=== PATIENT | female | born 1985 | race Caucasian/White ===

== ENCOUNTER 2019-07-23 22:48 | Emergency (ER) | payer OTHER ==
[2019-07-23 23:14] LABS: BILIRUBIN,URINE NEGATIVE (NEGATIVE); CLARITY,URINE CLEAR (CLEAR); GLUCOSE, URINE (UA) NEGATIVE (NEGATIVE); KETONES,URINE (UA) NEGATIVE (NEGATIVE); LEUKOCYTE ESTERASE, URINE NEGATIVE (NEGATIVE); NITRITE,URINE NEGATIVE (NEGATIVE); OCCULT BLOOD,URINE MODERATE (NEGATIVE); PH,URINE 6.5 PH (5.0-7.5); PROTEIN,URINE NEGATIVE (NEGATIVE); UROBILINOGEN,URINE 0.2 (NORMAL) E.U./dL (NORMAL)
[2019-07-23 23:17] LABS: BACTERIA,URINE Few /HPF (None Seen); RBC,URINE 0-5 /HPF (0-5); SQUAMOUS EPITHELIAL CELL,UR MOD Squamous (<= Few)
[2019-07-23 23:22] LABS: BASOPHILS # (AUTO) 0.1 10^3/uL (0.0-0.1); BASOPHILS % (AUTO) 0.6 %; EOSINOPHILS # (AUTO) 0.4 10^3/uL (0.0-0.7); EOSINOPHILS % (AUTO) 3.1 %; HGB - HEMOGLOBIN 11.9 g/dL (12.0-16.0); LYMPHOCYTES % (AUTO) 16.6 %; MEAN CORPUSCULAR HEMOGLOBIN 30.5 pg (27.0-31.0); MEAN CORPUSCULAR VOLUME 89.7 fL (81.0-99.0); MEAN PLATELET VOLUME 9.9 fL (7.9-10.8); MONOCYTES % (AUTO) 8.1 %; NEUTROPHILS # (AUTO) 8.4 10^3/uL (1.5-6.6); NEUTROPHILS % (AUTO) 70.5 %; PLT - PLATELET COUNT 201 10^3/uL (130-450); RED CELL DISTRIBUTION WIDTH 12.9 % (12.0-15.0); WHITE BLOOD COUNT 11.9 x10^3/uL (4.8-10.8)
[2019-07-23 23:36] LABS: ALBUMIN 3.8 g/dL (3.2-5.5); ALBUMIN/GLOBULIN RATIO 1.1 (1.0-2.2); BILIRUBIN,TOTAL 0.6 mg/dL (0.2-1.0); CALCIUM 9.1 mg/dL (8.5-10.3); CREATININE 0.6 mg/dL (0.4-1.0); TOTAL PROTEIN 7.2 g/dL (6.7-8.2)
--- NOTE | 2019-07-24 00:01 | ED Physician Documentation ---
PD HPI FEMALE - Stated complaint Stated Complaint: BLEEDING - Chief complaint Chief Complaint: Abd Pain - History obtained from History obtained from: Patient - History of Present Illness Timing - onset: Enter time (22:00), Today Timing - details: Abrupt onset Pain level max: 0 Pain level max: 0 Contributing factors: OB-PSYCHOLOGY ASSOCIATE History: G (2), P (1) Similar symptoms before: Has not had sx before Recently seen: Not recently seen - Additional information Additional information: 14 weeks , c/o bright pinkish red blood when she urinated tonight at a pproximately 10 PM, with subsequent scant spotting Review of Systems Constitutional: reports: Reviewed and negative Cardiac: reports: Reviewed and negative Respiratory: reports: Reviewed and negative GI: reports: Reviewed and negative : reports: Vaginal bleeding, Now EGA (14 weeks). denies: Dysuria, Frequency PD PAST MEDICAL HISTORY - Past Medical History Past Medical History: Yes Psych: Other Other Past Medical History: Anorexia - Past Surgical History Past Surgical History: No - Present Medications Home Medications: Ambulatory Orders Medication Instructions Recorded Confirmed No Known Home Medications 07/23/19 07/25/19 - Allergies Allergies/Adverse Reactions: Allergies Allergy/AdvReac Type Severity Reaction Status Date / Time No Known Drug Allergies Allergy Verified 07/25/19 12:59 - Social History Does the pt smoke?: No Smoking Status: Never smoker Does the pt drink ETOH?: No Does the pt have substance abuse?: No - Immunizations Immunizations are current?: Yes - POLST Patient has POLST: No PD ED PE NORMAL - Vitals Vital signs reviewed: Yes - General General: Alert and oriented X 3, No acute distress, Well developed/nourished - Cardiac Cardiac: RRR, No murmur - Abdomen Abdomen: Soft, Non tender - Back Back: No CVA TTP Results - Vitals Vitals: Oxygen O2 Source Room air - Labs Labs: Laboratory Tests 07/23/19 07/23/19 07/23/19 22:55 23:07 23:07 WBC RBC Hgb Hct MCV MCH MCHC RDW Plt Count MPV Neut # (Auto) Lymph # (Auto) Gooding # (Auto) Eos # (Auto) Baso # (Auto) Absolute Nucleated RBC Nucleated RBC % Sodium 136 Potassium 3.4 L Chloride 99 L Carbon Dioxide 23 Anion Gap 14.0 H BUN 11 Creatinine 0.6 Estimated GFR (MDRD) 115 Glucose 93 Calcium 9.1 Total Bilirubin 0.6 AST 26 ALT 22 Alkaline Phosphatase 59 Total Protein 7.2 Albumin 3.8 Globulin 3.4 Albumin/Globulin Ratio 1.1 Lipase 29 HCG, Quant Urine Color YELLOW Urine Clarity CLEAR Urine pH 6.5 Ur Specific [place] <=1.005 Urine Protein NEGATIVE Urine Glucose (UA) NEGATIVE Urine Ketones NEGATIVE Urine Occult Blood MODERATE H Urine Nitrite NEGATIVE Urine Bilirubin NEGATIVE Urine Urobilinogen 0.2 (NORMAL) Ur Leukocyte Esterase NEGATIVE Urine RBC 0-5 Urine WBC 0-3 Ur Squamous Epith Cells MOD Squamous H Urine Bacteria Few Ur Microscopic Review INDICATED Urine Culture Comments NOT INDICATED Blood Type O POSITIVE 07/23/19 07/23/19 23:07 23:07 WBC 11.9 H RBC 3.90 L Hgb 11.9 L Hct 35.0 L MCV 89.7 MCH 30.5 MCHC 34.0 RDW 12.9 Plt Count 201 MPV 9.9 Neut # (Auto) 8.4 H Lymph # (Auto) 2.0 Gooding # (Auto) 1.0 Eos # (Auto) 0.4 Baso # (Auto) 0.1 Absolute Nucleated RBC 0.00 Nucleated RBC % 0.0 Sodium Potassium Chloride Carbon Dioxide Anion Gap BUN Creatinine Estimated GFR (MDRD) Glucose Calcium Total Bilirubin AST ALT Alkaline Phosphatase Total Protein Albumin Globulin Albumin/Globulin Ratio Lipase HCG, Quant 36262.00 Urine Color Urine Clarity Urine pH Ur Specific [place] Urine Protein Urine Glucose (UA) Urine Ketones Urine Occult Blood Urine Nitrite Urine Bilirubin Urine Urobilinogen Ur Leukocyte Esterase Urine RBC Urine WBC Ur Squamous Epith Cells Urine Bacteria Ur Microscopic Review Urine Culture Comments Blood Type - Rads (name of study) OB US Radiology: Prelim report reviewed, See rad report PD MEDICAL DECISION MAKING - ED course Complexity details: reviewed results, re-evaluated patient, considered differential, d/w patient Departure - Departure Disposition: 01 Home, Self Care Clinical Impression: Vaginal bleeding during Condition: Good Instructions: ED Miscarriage Poss Follow-Up: ROBERT Quiros [Provider Group] Discharge Date/Time: 07/24/19 03:42
--- NOTE | 2019-07-24 02:39 | Ultrasound Report ---
Reason: 14 weeks , vaginal bleeding Procedure Date: 07/24/2019 Accession Number: [id number] / [id number] Procedure: US - OB Limited CPT Code: FULL RESULT: EXAM: LIMITED OBSTETRICAL ULTRASOUND EARLY SECOND TRIMESTER EXAM DATE: 07/24/2019 02:24 AM. CLINICAL HISTORY: 14 weeks , vaginal bleeding. COMPARISON: None. TECHNIQUE: Real-time sonographic evaluation of the fetus performed by the color paste mixing supervisor. Multiple residential sales representative static images were saved for review. DATING: Established EGA 14 weeks 5 days with CESARIO 01/17/2020 based on provided dating. GENERAL EVALUATION Barrett . Cardiac activity: 157 bpm. movement: Visualized. Presentation: Variable Placenta: Anterior position. No evidence for previa. Amniotic fluid: Subjectively normal. MVP 3.6 cm. ANATOMY Not assessed, secondary to the emergent nature of the examination. MATERNAL STRUCTURES Uterus: Unremarkable. Cervix: Long and closed. Right ovary/adnexa: Unremarkable. Left ovary/adnexa: Unremarkable. Free fluid: None. IMPRESSION: 1. Barrett live intrauterine with gestational age 14 weeks 5 days based on provided dating. 2. No evidence of perigestational hemorrhage. Note: Detailed anatomic survey at 18-22 weeks is recommended for all fetuses evaluated prior to 18 weeks, as some structural abnormalities may be inapparent at earlier gestational ages. RADIA
[2019-07-24 03:34] VITALS: BP 117/62
== END 2019-07-24 03:42 | disposition home or self-care (01) ==
LOC: ED 22:48
DX: O46.92 Antepartum hemorrhage, unspecified, second trimester (principal); Z3A.14 14 weeks gestation of pregnancy
CPT/HCPCS: 36415; 76815; 80053; 81001; 81003; 83690; 84702; 85025; 86900; 86901; 87086; 99283; 99284

== ENCOUNTER 2019-07-25 12:45 | Emergency (ER) | payer OTHER ==
[2019-07-25 12:59] VITALS: BP 123/62
--- NOTE | 2019-07-25 14:06 | ED Physician Documentation ---
History of Present Illness - Stated complaint Stated Complaint: FEM /14 WEEKS - Chief complaint Chief Complaint: Abd Pain - History obtained from History obtained from: Patient - History of Present Illness Timing: Today Pain level max: 0 Pain level now: 0 Improved by: nothing Worsened by: nothing - Additonal information Additional information: 34-year-old female presents the emergency department with vaginal bleeding and spotting. Seen here approximately 36 hours ago for same. Has an IUP at approximately 14 weeks EGA. Review of Systems Ten Systems: 10 systems reviewed and negative Constitutional: denies: Fever, Chills Nose: denies: Rhinorrhea / runny nose, Congestion GI: denies: Vomiting, Diarrhea : denies: Dysuria, Frequency, Hesitancy, Discharge Skin: denies: Rash Musculoskeletal: denies: Neck pain, Back pain Neurologic: denies: Focal weakness, Numbness PD PAST MEDICAL HISTORY - Past Medical History Past Medical History: No Psych: Other - Past Surgical History Past Surgical History: No - Present Medications Home Medications: Ambulatory Orders Medication Instructions Recorded Confirmed No Known Home Medications 07/23/19 07/25/19 - Allergies Allergies/Adverse Reactions: Allergies Allergy/AdvReac Type Severity Reaction Status Date / Time No Known Drug Allergies Allergy Verified 07/25/19 12:59 - Social History Does the pt smoke?: No Smoking Status: Never smoker Does the pt drink ETOH?: No Does the pt have substance abuse?: No - Immunizations Immunizations are current?: Yes - POLST Patient has POLST: No PD ED PE NORMAL - Vitals Vital signs reviewed: Yes - General General: Alert and oriented X 3, No acute distress, Well developed/nourished - HEENT HEENT: PERRL, Moist mucous membranes - Neck Neck: Supple, no meningeal sign - Cardiac Cardiac: RRR, Strong equal pulses - Respiratory Respiratory: No respiratory distress, Clear bilaterally - Abdomen Abdomen: Soft, Non tender, Non distended - Female Female : Pt declined - Back Back: No spinal TTP - Derm Derm: Warm and dry - Neuro Neuro: Alert and oriented X 3 - Psych Psych: Normal mood, Normal affect Results - Vitals Vitals: Vital Signs - 24 hr 07/25/19 12:55 Temperature 36.8 C Heart Rate 93 Respiratory 18 Rate Blood Pressure 123/62 O2 Saturation 98 Oxygen O2 Source Room air - Labs Labs: Laboratory Tests 07/25/19 14:05 C. glabrata (PCR) NEGATIVE C. krusei (PCR) NEGATIVE Karolina species DNA POSITIVE A T. vaginalis (PCR) NEGATIVE Bact Vaginosis (PCR) NEGATIVE PD MEDICAL DECISION MAKING - ED course Complexity details: reviewed old records, reviewed results, considered differential, d/w patient ED course: Patient with an intrauterine . heart rate of approximately 146 bpm. Good movement. Had lab work approximately 24 hours ago, will not repeat today. We did do a vaginal swab, this came back with a yeast, but the patient is asymptomatic, therefore per up-to-date and CDC guidelines, will not treat at this time. Patient counseled regarding signs and symptoms for which I believe and urgent re-evaluation would be necessary. Patient with good understanding of and agreement to plan and is comfortable going home at this time This document was made in part using voice recognition software. While efforts are made to proofread this document, sound alike and grammatical errors may occur. Departure - Departure Disposition: 01 Home, Self Care Clinical Impression: Vaginal bleeding affecting early Condition: Good Instructions: ED Miscarriage Poss Follow-Up: CLEMENTINE SAUCEDA MD [Primary Care Provider] - Within 1 week Comments: Return if you worsen. Follow-up with your doctor for further care. Your swab should be done by 4:00 today and if it is positive, we will call you for a prescription. If you do not hear from us by 5:00, please call back to the emergency department. Discharge Date/Time: 07/25/19 14:09
[2019-07-25 17:09] LABS: CANDIDA GROUP DNA POSITIVE (NEGATIVE); CANDIDA KRUSEI DNA NEGATIVE (NEGATIVE); TRICHOMONAS VAGINALIS DNA NEGATIVE (NEGATIVE)
== END 2019-07-25 14:09 | disposition home or self-care (01) ==
LOC: ED 12:45
DX: O20.9 Hemorrhage in early pregnancy, unspecified (principal); Z3A.14 14 weeks gestation of pregnancy
CPT/HCPCS: 80053; 83690; 84702; 85025; 87661; 87801; 99283

== ENCOUNTER 2019-12-20 14:37 | Outpatient (CLI) | payer OTHER ==
--- NOTE | 2019-12-21 16:10 | Ultrasound Report ---
Reason: GESTATIONAL DIABETES Procedure Date: 12/20/2019 Accession Number: [id number] / [id number] Procedure: US - OB F/U or Repeat CPT Code: Final Report FULL RESULT: EXAM: FOLLOW-UP OBSTETRICAL ULTRASOUND EXAM DATE: 12/20/2019 03:18 PM. CLINICAL HISTORY: Gestational diabetes. COMPARISON: OB LIMITED 07/24/2019 1:41 AM. TECHNIQUE: Real-time sonographic evaluation of the fetus performed by the online marketing specialist. Multiple representative personal service static images were saved for review. DATING: Established EGA 36 weeks 0 days with CESARIO 01/17/2020 based on working due date. EGA 35 weeks 4 days with CESARIO 01/20/2020 based on the current ultrasound. GENERAL EVALUATION Barrett . Cardiac activity: 147 bpm. movement: Visualized. Presentation: Cephalic. Placenta: Anterior position. Amniotic fluid: Normal. TAMIKO 7.4 cm. MVP 3.7 cm. BIOMETRY Bi-Parietal Diameter (BPD): 8.7 cm, 35 weeks 1 day Head Circumference (HC): 31.9 cm, 35 weeks 6 days Abdominal Circumference (AC): 32.7 cm, 36 weeks 4 days Femur Length (FL): 6.7 cm, 34 weeks 4 days Estimated Weight: 2781 g, 46th percentile for 36 weeks 0 days. IMPRESSION: 1. Barrett live intrauterine with gestational age 36 weeks 0 days based on working due date. 2. Estimated weight is within expected limits for assigned dating. RORY
== END 2019-12-20 14:38 | disposition home or self-care (01) ==
LOC: DI 14:37
PROVIDERS: ATTEND Nurse Practitioner Obstetrics & Gynecology
DX: O24.419 Gestational diabetes mellitus in pregnancy, unspecified control (principal); Z3A.36 36 weeks gestation of pregnancy; Z11.3 Encounter for screening for infections with a predominantly sexual mode of transmission
CPT/HCPCS: 36415; 76816; 81599; 86695; 86696

== ENCOUNTER 2019-12-20 15:23 | Outpatient (CLI) | payer OTHER ==
[2019-12-23 09:14] LABS: HSV 1 IGG TYPE SPECIFIC AB <0.90 index; HSV 2 IGG TYPE SPECIFIC AB <0.90 index
== END 2019-12-20 15:24 | disposition home or self-care (01) ==
LOC: LAB 15:23
PROVIDERS: ATTEND Nurse Practitioner Obstetrics & Gynecology
DX: Z11.3 Encounter for screening for infections with a predominantly sexual mode of transmission (principal)
CPT/HCPCS: 36415; 81599; 86695; 86696

== ENCOUNTER 2019-12-25 08:00 | Outpatient (CLI) | payer OTHER ==
[2019-12-25 21:11] LABS: TRICHOMONAS VAGINALIS DNA NEGATIVE (NEGATIVE)
== END 2019-12-25 23:59 | disposition home or self-care (01) ==
LOC: LAB.R 08:00
PROVIDERS: ATTEND Nurse Practitioner Obstetrics & Gynecology
DX: Z36.85 Encounter for antenatal screening for Streptococcus B (principal)
CPT/HCPCS: 87491; 87591; 87661; 87797

== ENCOUNTER 2020-01-11 16:20 | Inpatient (IN) | payer OTHER ==
[2020-01-11] MEDS ORDERED: ONDANSETRON ODT 4 MG TABLET TL PRN (17:57)
[2020-01-11] MEDS ORDERED: SODIUM CHLORIDE FLUSH 0.9% 10 ML SYRINGE IVP PRN (17:57)
[2020-01-11] MEDS ORDERED: ONDANSETRON 4 MG/2 ML VIAL IVP PRN (17:57)
[2020-01-11] MEDS ORDERED: AMPICILLIN 2 GM in SODIUM CHLORIDE 0.9% MINIBAG 100 ML IV ONE (17:57)
[2020-01-11] MEDS ORDERED: ACETAMINOPHEN 325 MG TABLET PO PRN (17:57)
[2020-01-11] MEDS ORDERED: fentaNYL 100 MCG/2 ML VIAL IVP PRN (17:57)
[2020-01-11] MEDS ORDERED: OXYTOCIN/SODIUM CHLORIDE 500 ML IV SCH (18:00)
[2020-01-11] MEDS ORDERED: LACTATED RINGERS 1,000 ML IV SCH (18:00)
--- NOTE | 2020-01-11 18:38 | HISTORY & PHYSICAL EXAMINATION ---
Admit History - : 2 Parity: 1 Premature: 0 Ectopic: 0 : 0 Care: positive: IWROBERT ALMONTE-Shawanda Risk/History: positive: Labor induction Complications This : positive: Gestational diabetes Smoking Status: Former smoker - Mother's Labs Mother's Blood Type: positive: O Mother's RH: positive: Positive GBS: positive: Group B Strep Positive Rubella Status: positive: Immune - Other Maternal History Other Maternal History: Dacia Pride is 34yo who presents at 39.1wks gestation She is currently blayne intermittently. FHT baseline 135, moderate variability, accels, no decels. She received care with [facility] after a 34.5 week transfer from [facility] care which was adequate for her . Her is complicated by GDM(diet controlled) and positive GBS. She is admitted to Observation status today for pre-induction cervical ripening Initial U/S: 06/26/2019 @ 10.5wks gestation c/w LMP dating OB History: G1: 2013 term male infant 8#1oz G2: current Current Medications: Vitamins Allergies: NKDA Medical History: Eating disorder Abnormal Pap- coloposcopy 2014 Surgical History: None significant Family History: None contributing Social History: Former Smoker Labs: O+/Rubella immune Genetic testing: Serum integrated screen negative; CF neg FAS: 09/01/2019 WNL. Anterior placenta, no previa. Size c/w dating. 3VC. TAMIKO WNL. 12/20/2019 growth and TAMIKO WNL. TAMIKO 7.4. EFW 2781g. 46%tile. Glucola elevated 156; 3hr diagnoses gestational diabetes - 85, 217, 190, 78 TDAP 11/06/2019 GBS POSITIVE Physical Exam: WNL As charted in flowsheet Gravid, Nontender uterus Vertex by palpation and by RN digital exam EFW by noel 7# SVE: 2/60/-1/mod/posterior ASSESSMENT: 34yo at 39.1wks gestation presents for pre-induction cervical ripening. Cat I tracing Uterine activity- intermittent and mild GDM- diet controlled GBS- positive prophylaxis ordered PLAN: OBS until: active labor, SROM, AROM, epidural, or pitocin Continuous monitoring IV fentanyl and epidural per pt request Diet and Activity as tolerated at this time Anticipate Meds/Allgy - Home Medications Home Medications: Ambulatory Orders Medication Instructions Recorded Confirmed No Known Home Medications 07/23/19 07/25/19 - Allergies Allergies/Adverse Reactions: Allergies Allergy/AdvReac Type Severity Reaction Status Date / Time No Known Drug Allergies Allergy Verified 07/25/19 12:59 Review of Systems - Constitutional Constitutional: denies: Fatigue, Fever, Chills, Weakness - Eyes Eyes: denies: Pain, Blurred vision, Spots in vision, Vision loss, Dipolpia - Ears, Nose & Throat Ears, Nose & Throat: denies: Hearing loss, Tinnitus, Vertigo, Nasal discharge, Nasal congestion - Cardiovascular Cariovascular: reports: Palpitations. denies: Irregular heart rate, Chest pain, Edema, Lightheadedness, Syncope - Respiratory Respiratory: denies: Cough, Sputum production, Wheezing, SOB at rest, SOB with exertion - Gastrointestinal Gastrointestinal: denies: Abdominal pain, Abdominal distention, Rectal bleeding - Musculoskeletal Musculoskeletal: denies: Muscle pain, Back pain, Muscle aches - Integumentary Integumentary: denies: Rash, Pruritis, Lesions - Neurological Neurological: denies: General weakness, Headache, Dizziness - Psychiatric Psychiatric: denies: Depression, Anxiety - Hematologic/Lymphatic Hematologic/Lymphatic: denies: Anemia, Bruising - All Other Systems All Other Systems: denies: Reviewed and negative Physical - Abdominal Exam Contraction Frequency (min/apart): intermittent Contraction Intensity: positive: Mild Uterine Resting Tone: positive: Soft - Monitoring Strip Review: positive: Category I - Presentation Presentation: positive: Vertex - Vaginal Exam Membranes: positive: Membranes intact Dilation (in cm): 2 Effacement (%): 60 Station: positive: -1 Cervical Position: positive: Posterior - Speculum Exam Speculum Exam Performed: positive: No Plan for Labor - Plan For Labor I expect patient to be DC'd or transferred within 96 hours.: Yes
[2020-01-11 19:16] LABS: BASOPHILS % (AUTO) 0.3 %; EOSINOPHILS # (AUTO) 0.1 10^3/uL (0.0-0.7); EOSINOPHILS % (AUTO) 1.2 %; HGB - HEMOGLOBIN 11.8 g/dL (12.0-16.0); LYMPHOCYTES # (AUTO) 1.3 10^3/uL (1.5-3.5); LYMPHOCYTES % (AUTO) 14.3 %; MEAN CORPUSCULAR HEMOGLOBIN 30.6 pg (27.0-31.0); MEAN CORPUSCULAR HGB CONC 34.4 g/dL (32.0-36.0); MEAN CORPUSCULAR VOLUME 89.1 fL (81.0-99.0); MEAN PLATELET VOLUME 10.2 fL (7.9-10.8); MONOCYTES % (AUTO) 10.2 %; NEUTROPHILS # (AUTO) 6.8 10^3/uL (1.5-6.6); PLT - PLATELET COUNT 215 10^3/uL (130-450); RED BLOOD COUNT 3.85 10^6/uL (4.20-5.40); RED CELL DISTRIBUTION WIDTH 13.8 % (12.0-15.0); WHITE BLOOD COUNT 9.3 x10^3/uL (4.8-10.8)
[2020-01-11] MEDS: miSOPROStoL 100 MCG TABLET BC SCH (20:20)
[2020-01-12] MEDS ORDERED: SODIUM CHLORIDE FLUSH 0.9% 10 ML SYRINGE IVP SCH (01:00)
[2020-01-12] MEDS: miSOPROStoL 100 MCG TABLET BC SCH (02:23)
--- NOTE | 2020-01-12 07:08 | PROVIDER PROGRESS NOTE ---
Labor Progress Note - Uterine Monitoring Contraction Frequency (min/apart): 1.5-2.5 Contraction Intensity: positive: Moderate Uterine Resting Tone: positive: Soft - Monitoring Monitor Mode: positive: External ultrasound Heart Rate Baseline: 125 Heart Rate Variability: positive: Moderate (6-25 bmp) Accelerations: positive: Present, 15x15 Decelerations: positive: None - Vaginal Exam Dilation (in cm): 3 Effacement (%): 80 Station: 0 Cervical Position: Anterior - Labor Progress Note Labor Progress Note/Additional Text: S: Dacia was able to sleep well last night, but was kept awake around 0600 by the strength of her contractions. Coping with with position changes and breathing exercises. Denies LOF or VB. O: FHTs as charted in flowsheet Uterine ctx as charted in flowsheet VSS Fasting AM blood sugar 95 last SVE: /0/moderate/anterior Miso ripening x2 A: Early active labor, Hollis Score 10 FHT Cat I Uterine contractions adequate at this time P: Expectant management IV hydration GBS prophylaxis with antibiotics ordered Continuous monitoring Eat/Drink/Ambulate as desired Expect
[2020-01-12] MEDS ORDERED: TERBUTALINE 1 MG/ML VIAL SUBQ PRN (07:39)
[2020-01-12] MEDS ORDERED: WITCH HAZEL/GLYCERIN 1 PAD TOP PRN (10:07)
[2020-01-12] MEDS ORDERED: OXYTOCIN 10 UNIT/ML VIAL IM ONE ×2 (10:07→12:30)
--- NOTE | 2020-01-12 10:27 | DELIVERY NOTE ---
Delivery Note - Labor Labor: positive: Induced by ARM - Infant Delivery Method Delivery Method: positive: Spontaneous vaginal delivery - Cervical Ripening Method Cervical Ripening Method: positive: Misoprostil - Presentation Presentation: positive: Vertex, NUNU - right occiput anterior - Nuchal Cord Nuchal Cord: positive: None - Amniotic Fluid Description Amniotic Fluid Description: positive: Light meconium - Laceration Laceration: positive: None - Delivery Outcome Delivery Outcome: positive: Livebirth - Murphy: positive: Placed in direct skin contact with mother sex: positive: Female - Cord Cord: positive: 3 vessels - Placenta Placenta: positive: Intact - Estimated Blood Loss Estimated Blood Loss (in cc): 150 - Post Delivery Events Post Delivery Events: positive: No post delivery events - Delivery Comments (Free Text/Narrative) Delivery Comments (Free Text/Narrative): This 34 year old, , @39.1wks gestation by 10.5week Ultrasound, confirmed by LMP, presented @ 1630 for pre-induction cervical ripening. Cervix was 2/60/- 2/posterior and vertex. FHR pattern demonstrated 125 baseline in a Category I pattern. Normal labor course. SROM occurred @ 0835 and noted to be moderate volume with light meconium. Pt was 3/80/0/mod/anterior around 0800 and GBS prophylaxis was started. Pt quicklt progressed to complete at 0921. : Normal of a female infant on 01/12/2020 @ 0935. Nuchal cord not present. The was placed on maternal abdomen, stimulated, dried and placed skin to skin. Apgars 9 at one minute and 9 at five minutes. The umbilical cord was allowed to stop pulsating at which time it was doubly clamed by CNM and cut by Dacia. Pitocin not administered for hemostasis due to failure of IV access. Physiologic management was done. Fundal massage and gentle cord traction applied for active third stage management. Cord blood was obtained. Placenta delivered spontaneously and intact at 0942. Three vessel cord. EBL 150mL. Fourth Stage: Uterine fundus firm and without excessive bleeding. The perineum, vagina, and cervix were inspected and found to be intact. Tissues well approximated. initiated. Family bonding well. Both mother and baby are in stable condition.
[2020-01-12] MEDS ORDERED: AMPICILLIN 1 GM in SODIUM CHLORIDE 0.9% MINIBAG 100 ML IV SCH (12:00)
[2020-01-12] MEDS ORDERED: METHYLERGONOVINE 0.2 MG/ML VIAL IM ONE (13:00)
[2020-01-13] MEDS: IBUPROFEN 600 MG TABLET PO SCH ×3 (08:25→20:23)
[2020-01-13] MEDS: DOCUSATE SODIUM 100 MG CAPSULE PO PRN ×2 (08:25→21:57)
--- NOTE | 2020-01-13 20:59 | PROVIDER PROGRESS NOTE ---
Subjective - Prog Note Date Prog Note Date: 01/13/20 Prog Note Time: 15:00 - Subjective Subjective: S: Pt reports feeling well. Pain well controlled with oral medications. Cramping with only. Bleeding has continued to decrease since . Br eastfeeding is going well, reports inconsistent latch. Positively describes experience and bonding with baby. Desires to go home tomorrow. Denies dizziness, headache, nausea, or pain in breasts. O: BP 124/73 Light lochia rubra Fundus firm without massage Excellent attachment behaviors noted Afebrile A: 34yo , day #1 Status post term well Perineum intact and healing well P: Continue routine PP care and meds Evaluate for discharge home tomorrow Objective - Vital Signs/Intake & Output Vital Signs: Vital Signs x48h Temp Pulse Resp BP Pulse Ox 01/13/20 19:55 36.6 C 80 18 124/73 99 01/13/20 17:03 36.6 C 72 18 105/54 L 98 Intake & Output: Intake & Output 01/10/20 01/11/20 01/12/20 01/13/20 23:59 23:59 23:59 23:59 Intake Total 100 1350 Output Total 1750 Balance 100 -400 - Lab Results Fish Bones: 01/11/20 18:40
[2020-01-14] MEDS: IBUPROFEN 600 MG TABLET PO SCH ×2 (04:35→10:46)
[2020-01-14 07:40] VITALS: BP 125/78
--- NOTE | 2020-01-14 09:42 | Discharge Plan ---
Discharge Plan Problem Reviewed?: Yes Disposition: Home, Self Care Diet: Regular Activity Restrictions: Activity as Tolerated Shower Restrictions: No Driving Restrictions: No Weight Bearing: Full Weight No Smoking: If you smoke, Please STOP! Call for help.
--- NOTE | 2020-01-14 09:45 | DISCHARGE SUMMARY ---
Discharge Summary Admit Date: 01/12/20 Discharge Date: 01/14/20 Code Status: Attempt Resuscitation Condition at Discharge: Good Discharge Disposition: 01 Home, Self Care - DIAGNOSES Admission Diagnoses: Date of Admission 01/12/2020 Date of Discharge 01/14/2020 Diagnosis on Admission: 1. A 34yo at 49.2 week intrauterine 2. Early Active Labor 3. Gestational Diabetes, diet controlled 4. GBS positive Diagnosis on Discharge 1. A 34yo s/p spontaneous vaginal delivery on 01/14/2020 2. Normal recovery Brief History: She is a patient at [facility] who presented on 01/11/2020 for Observation status for pre-induction cervical ripening due to gestational di abetes. She was admitted to the unit on 01/12/2020 when she began active labor and SROMed at 0835. GBS prophylaxis was started. The patient was found to contract every 2 to 3 minutes and her cervix was 3cm dilated, 80%effaced, and -1 station. She spontaneously delivered a viable female infant named Radha at 0935. Apgars were 9 and 9 at 1 and 5 minutes respectively. EBL 150 mL. The patient's perineum was found to be intact. She has been doing well in her course. She is ambulating and tolerating a regular diet. She is urinating without difficulty and her lochia is normal. Her pain is well controlled with oral medications. She will be discharged home today on pastpartum day #2 without prescriptions, as she declined them. She intends to follow up with myself at [facility] in 3 weeks for routine visit, but to call at one week for a telephone assessment of . She has been given precautions to call if she has any worsening fevers, chills, abdominal pain, increased bleeding or foul smelling vaginal lochia. - ALLERGIES Allergies/Adverse Reactions: Allergies Allergy/AdvReac Type Severity Reaction Status Date / Time No Known Drug Allergies Allergy Verified 07/25/19 12:59 - MEDICATIONS Home Medications: Ambulatory Orders Medication Instructions Recorded Confirmed No Known Home Medications 07/23/19 07/25/19 - LABS Result Diagrams: 01/11/20 18:40
[2020-01-14] MEDS: DOCUSATE SODIUM 100 MG CAPSULE PO PRN (10:51)
--- NOTE | 2020-01-14 11:17 | PROVIDER PROGRESS NOTE ---
Subjective - Prog Note Date Prog Note Date: 01/14/20 Prog Note Time: 11:14 - Subjective Pt reports feeling: Improved (breast feeding) Objective - Vital Signs/Intake & Output Reviewed Vital Signs: Yes Vital Signs: Vital Signs x48h Temp Pulse Resp BP Pulse Ox 01/14/20 07:39 36.6 C 72 18 125/78 100 Intake & Output: Intake & Output 01/11/20 01/12/20 01/13/20 01/14/20 23:59 23:59 23:59 23:59 Intake Total 100 1350 Output Total 1750 Balance 100 -400 - Objective General Appearance: positive: No acute distress, Alert Rectal: positive: Non-tender, Mass (U-3) Extremities: positive: Calf tenderness. negative: Mercedes's sign/cords Neurologic/Psychiatric: positive: Oriented x3 - Lab Results Fish Bones: 01/11/20 18:40 Assessment/Plan - Problem List (1) (spontaneous vaginal delivery) Impression: Send home Discharge medicationa Motrin colace PNV tylenol RTC 6 weeks Discussed contraception
--- NOTE | 2020-01-14 12:38 | Labor Flowsheet ---
Labor Flowsheet Datetime Report Generated by CPN: 01/14/2020 12:38 Datetime: 01/14/2020 07:32 VITAL SIGNS NBP Sys/Kinsey/Mean (mmHg): 125 : 78 : 90 Pulse: 72 Datetime: 01/13/2020 17:04 SpO2 (%): 99 Datetime: 01/12/2020 13:18 Membranes Ruptured Date/Time: 01/12/2020 08:25 Amniotic Fluid Odor: Normal Datetime: 01/12/2020 10:02 Pain Presence: None/Denies Datetime: 01/12/2020 09:59 LaborFlag: Labor Datetime: 01/12/2020 09:44 Stage of : Labor Datetime: 01/12/2020 09:36 MEDICATIONS Pitocin (milliunits): Started @ 999 Medication Comments: Datetime: 01/12/2020 09:21 VAGINAL EXAM Dilatation (cm): 10.0 Effacement (%): 100 Station: 0 Exam by: Kath Ulloa Vaginal Bleeding: Normal Show Cervix, Consistency: Soft Cervix, Position: Midposition Datetime: 01/12/2020 09:06 Vaginal Exam Comments: light mec noted on exam Datetime: 01/12/2020 09:01 COMMUNICATION Communication: Provider at Bedside Provider Notified (Name): CNM [place] Datetime: 01/12/2020 08:40 Notification Reason: Status Update; Membrane Status; Uterine Activity Communication Comments: Notified provider patient SROM Datetime: 01/12/2020 08:35 Membrane Status: Ruptured Membranes Rupture Method: Spontaneous Amniotic Fluid Color: Light Meconium Amniotic Fluid Amount: Moderate Nitrazine: Positive Datetime: 01/12/2020 08:17 Patient Position/Activity: Birthing Ball Datetime: 01/12/2020 08:09 Respirations: 20 Temperature (C): 36.6 Datetime: 01/12/2020 08:02 Antibiotics: Start Antibiotics; Ampicillin IV 2 Gm Datetime: 01/12/2020 08:00 UTERINE ACTIVITY Monitor Mode: External Frequency (min): 1-1.5 Quality: Moderate Duration (sec): 50-70 Pattern: Tachysystole: > 5 Contractions in 10 Minutes Resting Tone (Palpate): Relaxed ASSESSMENT A Monitor Mode: Telemetry FHR Baseline Rate : 125 Variability: Moderate 6-25 bpm Accelerations: 15X15 Decelerations: None Category: Category I Datetime: 01/12/2020 07:48 PATIENT CARE IV/Blood Work: IV Bolus Started Patient Care Comments: 500ml bolus started Datetime: 01/12/2020 07:35 Provider Reviewed Strip: Yes Datetime: 01/12/2020 07:30 FHR Baseline Changes: No Baseline Change Datetime: 01/12/2020 06:52 PAIN Pain Scale: 6 Pain Type: Cramping Pain Location: Abdomen; Back Pain Relief Measures: Comfort Measures Pain Coping: Breathing Through Contractions Datetime: 01/12/2020 05:30 Temperature Route: Oral Datetime: 01/12/2020 02:23 Cervical Ripening Agents: Cytotec @ Cervical Ripening Agents Other: cytotec 50mcg buccal Datetime: 01/12/2020 00:36 Vital Sign Comments: pt shivering, thermostat temp increased and wwarm blankets placed on pt Datetime: 01/11/2020 21:30 MATERNAL ASSESSMENT Level of Consciousness: Alert Headache: Denies Breath Sounds, Left: Clear and Equal Breath Sounds, Right: Clear and Equal Nausea/Vomiting: Denies RUQ Epigastric Pain: Denies
== END 2020-01-14 12:00 | disposition home or self-care (01) | DRG 807 ==
LOC: WFO 16:20 → FBP 16:21 → WFO 18:38 → FBP 18:39 → OBSVTOIN 01-12 12:41
PROVIDERS: ADMIT Obstetrics & Gynecology; ATTEND Obstetrics & Gynecology
PROC: 10E0XZZ Delivery of Products of Conception, External Approach (ICD-10-PCS; principal; 2020-01-12)
PROC: 10907ZC Drainage of Amniotic Fluid, Therapeutic from Products of Conception, Via Natural or Artificial Opening (ICD-10-PCS; 2020-01-12)
DX: O24.420 Gestational diabetes mellitus in childbirth, diet controlled (principal); Z37.0 Single live birth; O99.824 Streptococcus B carrier state complicating childbirth; O77.0 Labor and delivery complicated by meconium in amniotic fluid; O62.8 Other abnormalities of forces of labor; Z3A.39 39 weeks gestation of pregnancy; Z87.891 Personal history of nicotine dependence
CPT/HCPCS: 85025; A9270; G0378; J7120; Q0162

== ENCOUNTER 2020-01-15 17:49 | Outpatient (CLI) | payer OTHER ==
--- NOTE | 2020-01-15 19:08 | Labor Flowsheet ---
Labor Flowsheet Datetime Report Generated by CPN: 01/15/2020 19:08 Datetime: 01/14/2020 07:32 VITAL SIGNS NBP Sys/Kinsey/Mean (mmHg): 125 : 78 : 90 Pulse: 72 Datetime: 01/13/2020 17:04 SpO2 (%): 99 Datetime: 01/12/2020 13:18 Membranes Ruptured Date/Time: 01/12/2020 08:25 Amniotic Fluid Odor: Normal Datetime: 01/12/2020 10:02 Pain Presence: None/Denies Datetime: 01/12/2020 09:59 LaborFlag: Labor Datetime: 01/12/2020 09:44 Stage of : Labor Datetime: 01/12/2020 09:36 MEDICATIONS Pitocin (milliunits): Started @ 999 Medication Comments: Datetime: 01/12/2020 09:21 VAGINAL EXAM Dilatation (cm): 10.0 Effacement (%): 100 Station: 0 Exam by: Kath Ulloa Vaginal Bleeding: Normal Show Cervix, Consistency: Soft Cervix, Position: Midposition Datetime: 01/12/2020 09:06 Vaginal Exam Comments: light mec noted on exam Datetime: 01/12/2020 09:01 COMMUNICATION Communication: Provider at Bedside Provider Notified (Name): CNM [place] Datetime: 01/12/2020 08:40 Notification Reason: Status Update; Membrane Status; Uterine Activity Communication Comments: Notified provider patient SROM Datetime: 01/12/2020 08:35 Membrane Status: Ruptured Membranes Rupture Method: Spontaneous Amniotic Fluid Color: Light Meconium Amniotic Fluid Amount: Moderate Nitrazine: Positive Datetime: 01/12/2020 08:17 Patient Position/Activity: Birthing Ball Datetime: 01/12/2020 08:09 Respirations: 20 Temperature (C): 36.6 Datetime: 01/12/2020 08:02 Antibiotics: Start Antibiotics; Ampicillin IV 2 Gm Datetime: 01/12/2020 08:00 UTERINE ACTIVITY Monitor Mode: External Frequency (min): 1-1.5 Quality: Moderate Duration (sec): 50-70 Pattern: Tachysystole: > 5 Contractions in 10 Minutes Resting Tone (Palpate): Relaxed ASSESSMENT A Monitor Mode: Telemetry FHR Baseline Rate : 125 Variability: Moderate 6-25 bpm Accelerations: 15X15 Decelerations: None Category: Category I Datetime: 01/12/2020 07:48 PATIENT CARE IV/Blood Work: IV Bolus Started Patient Care Comments: 500ml bolus started Datetime: 01/12/2020 07:35 Provider Reviewed Strip: Yes Datetime: 01/12/2020 07:30 FHR Baseline Changes: No Baseline Change Datetime: 01/12/2020 06:52 PAIN Pain Scale: 6 Pain Type: Cramping Pain Location: Abdomen; Back Pain Relief Measures: Comfort Measures Pain Coping: Breathing Through Contractions Datetime: 01/12/2020 05:30 Temperature Route: Oral Datetime: 01/12/2020 02:23 Cervical Ripening Agents: Cytotec @ Cervical Ripening Agents Other: cytotec 50mcg buccal Datetime: 01/12/2020 00:36 Vital Sign Comments: pt shivering, thermostat temp increased and wwarm blankets placed on pt Datetime: 01/11/2020 21:30 MATERNAL ASSESSMENT Level of Consciousness: Alert Headache: Denies Breath Sounds, Left: Clear and Equal Breath Sounds, Right: Clear and Equal Nausea/Vomiting: Denies RUQ Epigastric Pain: Denies
== END 2020-01-15 18:45 | disposition home or self-care (01) ==
LOC: WFO 17:49 → FBP 17:51 → WFO 18:45
PROVIDERS: ATTEND Pediatrics
DX: Z53.9 Procedure and treatment not carried out, unspecified reason (principal)
CPT/HCPCS: 99403

== ENCOUNTER 2020-02-11 14:26 | Outpatient (CLI) | payer OTHER ==
[2020-02-11 17:59] LABS: ALBUMIN 4.2 g/dL (3.2-5.5); ALBUMIN/GLOBULIN RATIO 1.2 (1.0-2.2); BILIRUBIN,TOTAL 0.2 mg/dL (0.2-1.0); CALCIUM 9.5 mg/dL (8.5-10.3); CREATININE 0.7 mg/dL (0.4-1.0); TOTAL PROTEIN 7.7 g/dL (6.7-8.2)
== END 2020-02-11 23:59 | disposition home or self-care (01) ==
LOC: LAB.WCP 14:26
PROVIDERS: ATTEND Advanced Practice Midwife
DX: Z39.1 Encounter for care and examination of lactating mother (principal)
CPT/HCPCS: 36415; 80053; 84443

== ENCOUNTER 2022-01-10 16:00 | Outpatient (CLI) | payer OTHER ==
--- NOTE | 2022-01-11 09:42 | Ultrasound Report ---
PROCEDURE: OB First Trimester w/TV INDICATIONS: SUPERVISION OF OUTSIDE/PRIOR DATING DATA: Last menstrual period (LMP): 11/16/2021. LMP-based estimated date of delivery (CESARIO): 08/23/2022. First dating scan (date and location): 01/10/2022. Estimated date of delivery (CESARIO) from first dating scan: 09/02/2022. TECHNIQUE: Real-time scanning was performed of the fetus and maternal pelvic organs, with image documentation. Endovaginal scanning was also performed to better visualize the fetus and maternal ovaries. COMPARISON: None FINDINGS: Embryo: Single intrauterine is identified with crown-rump length measuring 6 mm correspond ing to 6 weeks 5 days. Small focus of subchorionic hemorrhage is noted measuring 6 x 4 x 17 mm. Heart rate: 115 bpm. Measurement variability in dating: +/- 4 weeks by LMP, +/- 7 days by mean sac diameter (use before 6 weeks gestation if crown-rump length not able to be measured), +/- 5 days by crown-rump length (6-12 weeks gestation). Maternal organs: Ovaries corpus luteal cyst is noted within the right ovary. Left ovary is unremarka ble. Cervical length measures 3.9 cm and is closed.. IMPRESSION: Single live intrauterine with ultrasound gestational age of 6 weeks 5 days. Small subchorionic hemorrhage. Recommend follow-up imaging at 20-22 weeks for dates and anatomy. Reviewed by: Zhanna Neal MD on 01/11/2022 9:41 AM PDT Approved by: Zhanna Neal MD on 01/11/2022 9:41 AM PDT Station ID: [id number]
== END 2022-01-10 16:01 | disposition home or self-care (01) ==
LOC: DI 16:00
PROVIDERS: ATTEND Family Medicine
DX: Z34.81 Encounter for supervision of other normal pregnancy, first trimester (principal)

== ENCOUNTER 2022-01-30 13:35 | Outpatient (CLI) | payer OTHER ==
[2022-01-30 14:06] LABS: BASOPHILS # (AUTO) 0.1 10^3/uL (0.0-0.1); BASOPHILS % (AUTO) 0.5 %; EOSINOPHILS # (AUTO) 0.4 10^3/uL (0.0-0.7); EOSINOPHILS % (AUTO) 3.3 %; HCT - HEMATOCRIT 36.7 % (37.0-47.0); HGB - HEMOGLOBIN 12.6 g/dL (12.0-16.0); LYMPHOCYTES # (AUTO) 1.7 10^3/uL (1.5-3.5); MEAN CORPUSCULAR HEMOGLOBIN 30.1 pg (27.0-31.0); MEAN CORPUSCULAR HGB CONC 34.3 g/dL (32.0-36.0); MEAN CORPUSCULAR VOLUME 87.8 fL (81.0-99.0); MEAN PLATELET VOLUME 9.7 fL (7.9-10.8); MONOCYTES # (AUTO) 0.8 10^3/uL (0.0-1.0); MONOCYTES % (AUTO) 7.6 %; NEUTROPHILS # (AUTO) 8.1 10^3/uL (1.5-6.6); NEUTROPHILS % (AUTO) 73.2 %; PLT - PLATELET COUNT 319 10^3/uL (130-450); RED BLOOD COUNT 4.18 10^6/uL (4.20-5.40); RED CELL DISTRIBUTION WIDTH 12.3 % (12.0-15.0); WHITE BLOOD COUNT 11.1 x10^3/uL (4.8-10.8)
[2022-01-30 14:09] LABS: BILIRUBIN,URINE NEGATIVE (NEGATIVE); GLUCOSE, URINE (UA) NEGATIVE (NEGATIVE); KETONES,URINE (UA) NEGATIVE (NEGATIVE); LEUKOCYTE ESTERASE, URINE NEGATIVE (NEGATIVE); NITRITE,URINE NEGATIVE (NEGATIVE); OCCULT BLOOD,URINE NEGATIVE (NEGATIVE); PH,URINE 5.5 PH (5.0-7.5); PROTEIN,URINE NEGATIVE (NEGATIVE); UROBILINOGEN,URINE 0.2 (NORMAL) E.U./dL (NORMAL)
[2022-01-30 14:11] LABS: CLARITY,URINE CLEAR (CLEAR)
[2022-01-31 09:03] LABS: HEPATITIS B SURFACE ANTIGEN NON-REACTIVE (NON-REACTIVE)
[2022-01-31 10:41] LABS: HEPATITIS C ANTIBODY NON-REACTIVE (NON-REACTIVE)
[2022-01-31 12:46] LABS: HIV AG/AB 4TH GEN NON-REACTIVE (NON-REACTIVE)
[2022-02-01 13:31] LABS: HSV 1 IGG TYPE SPECIFIC AB <0.90 index; HSV 2 IGG TYPE SPECIFIC AB <0.90 index
[2022-02-02 22:32] LABS: VARICELLA ZOSTER VIRUS IGM 0.27
== END 2022-01-30 13:36 | disposition home or self-care (01) ==
LOC: LAB 13:35
PROVIDERS: ATTEND Family Medicine
DX: Z34.80 Encounter for supervision of other normal pregnancy, unspecified trimester (principal)
CPT/HCPCS: 36415; 81003; 85025; 86592; 86695; 86696; 86762; 86787; 86803; 86850; 86900; 86901; 87086; 87340; 87389

== ENCOUNTER 2022-04-16 15:23 | Outpatient (CLI) | payer OTHER ==
--- NOTE | 2022-04-17 08:10 | Ultrasound Report ---
PROCEDURE: OB Detailed Eval INDICATIONS: SUPERVISION OF OUTSIDE/PRIOR DATING DATA: Last menstrual period (LMP): 11/16/2021. LMP-based estimated date of delivery (CESARIO): . First dating scan (date and location): 01/10/2022. Estimated date of delivery (CESARIO) from first dating scan: 09/02/2022. The below data below was generated using the ultrasound CESARIO of 09/02/2022 TECHNIQUE: Real-time scanning was performed of the fetus, with image documentation and biometric measurements. Endovaginal scanning: Not performed COMPARISON: 01/10/2022 FINDINGS: General: A single living intrauterine gestation is present. Presentation: Vertex Placenta: Placental position is posterior, without previa. Amniotic fluid index: 15.3 cm, within normal limits for gestational age. heart rate: 148 beats per minute. Maternal cervical canal: 4.9 cm long; normal length is 2.5 cm or more. biometrics: Biparietal diameter: 4.48 cm, 19 weeks 4 days Head circumference: 17.4 cm, 20 weeks 0 days Abdominal circumference: 15.15 cm, 20 weeks 3 days Femur length: 3.2 cm, 20 weeks 0 days Estimated gestational age from initial scan: 20 weeks 1 day Composite gestational age from present scan: 20 weeks 0 days Estimated weight and percentile: 334.5 g, 44.9 percentile Measurement variability in biometric dating: +/- 10 days from 12-20 weeks gestation, +/- 2 weeks from 20-30 weeks gestation, +/- 3 weeks at 30 weeks gestation or later. Anatomic survey: Neuro: Ventricles are normal at less than 10 mm. Cisterna magna is normal at 3-11 mm. Cerebellum i s normal in size and morphology. Nuchal skin fold: Normal at less than 6 mm between 14 and 20 weeks gestational age. Face: Nose and lips, facial profile are normal. Spine: No evidence for spina bifida. Heart: 4-chambered heart is present, with normal ventricular outflow tracts. Diaphragm: Diaphragm is intact. Stomach: Left-sided stomach is present. Kidneys: No hydronephrosis. Normal is less than 5 mm in 2nd trimester, less than 7 mm in 3rd trimester. Cord: 3 vessel cord has orthotopic insertion. Bladder: Normal in size. Extremities: All 4 extremities are visualized. IMPRESSION: 1. Living second trimester intrauterine with no sonographic evidence of complications. Curr ent ultrasound age is 1 day less than clinical age based on initial ultrasound. 2. Normal anatomy study. Reviewed by: Corbin Amaral MD on 04/17/2022 8:09 AM PDT Approved by: Corbin Amaral MD on 04/17/2022 8:09 AM PDT Station ID: [id number]
== END 2022-04-16 15:24 | disposition home or self-care (01) ==
LOC: DI 15:23
PROVIDERS: ATTEND Nurse Practitioner Obstetrics & Gynecology
DX: Z34.02 Encounter for supervision of normal first pregnancy, second trimester (principal); Z36.89 Encounter for other specified antenatal screening

== ENCOUNTER 2022-04-18 10:30 | Outpatient (CLI) | payer OTHER | END 2022-04-18 10:31 | disposition home or self-care (01) | LOC: LAB.N 10:30 | PROVIDERS: ATTEND Nurse Practitioner Obstetrics & Gynecology | DX: U07.1 COVID-19 (principal) ==